=== PATIENT | male | born 1995 | race Caucasian/White ===

== ENCOUNTER 2016-12-29 13:10 | Emergency (ER) | payer SELFPAY ==
[2016-12-29] MEDS ORDERED: ONDANSETRON 4 MG TAB.RAPDIS PO ONE (13:20)
[2016-12-29] MEDS ORDERED: IBUPROFEN 800 MG TABLET PO ONE (13:20)
--- NOTE | 2016-12-29 13:20 | ER Document Report ---
ED Medical Screen (RME) - General Stated Complaint: VOMITING Mode of Arrival: Ambulatory Information source: Patient Notes: c/o OWENS pounding for 3 days, vision becomes blurry with OWENS, Didn't drive here do to OWENS. Reports fever-felt hot, vomiting frequently for first 2 days, now gagging. c/o cough, back muscle tensed up. Still feels awful. reports neck sore. temp 102. HR 117. TRAVEL OUTSIDE OF THE [place] IN LAST 30 DAYS: No - Related Data Allergies/Adverse Reactions: Penicillins Allergy (Verified 11/14/12 22:46) Past Medical History - Immunizations Immunizations up to date: Yes Hx Diphtheria, Pertussis, Tetanus Vaccination: Yes
--- NOTE | 2016-12-29 17:06 | ER Document Report ---
ED Fever <GO ROBIN - Last Filed: 12/29/16 19:15> - General Mode of Arrival: Ambulatory Information source: Patient TRAVEL OUTSIDE OF THE [place] IN LAST 30 DAYS: No - HPI Patient complains to provider of: Fever and Body Ache Onset: Other - 3 days ago Associated symptoms: Other - see above <MALLORY DOTY - Last Filed: 12/29/16 23:06> - General Chief Complaint: Fever Stated Complaint: VOMITING Notes: 21-year-old male with no prior medical problems presents to the ED complaining of a fever (took Tylenol today) and soreness to the top of the bilateral legs and back for the past 3 days. Patient states that he is drinking normally but has had a decrease in appetite. Patient is also complaining of a headache, vomiting, and dry heaving. Patient denies diarrhea. Patient also denies getting the flu shot this year. (MALLORY DOTY) - Related Data Allergies/Adverse Reactions: Penicillins Allergy (Verified 12/29/16 13:18) Past Medical History - General Information source: Patient - Social History Smoking Status: Current Every Day Smoker Chew tobacco use (# tins/day): No Frequency of alcohol use: Rare Family History: Other - Mother has prophylactic reaction to penicillin. Father may also have a penicillin allergy, the son's report she does, the mother is not aware of her spouse having an allergy. Patient has suicidal ideation: No Patient has homicidal ideation: No - Medical History Medical History: Negative Renal/ Medical History: Denies: Hx Peritoneal Dialysis Surgical Hx: Negative - Immunizations Immunizations up to date: Yes Hx Diphtheria, Pertussis, Tetanus Vaccination: Yes <MALLORY DOTY - Last Filed: 12/29/16 23:06> Review of Systems - Review of Systems Constitutional: See HPI, Fever EENT: No symptoms reported Cardiovascular: No symptoms reported Respiratory: No symptoms reported Gastrointestinal: See HPI, Vomiting, Poor appetite, Other - dry heaving. denies : Diarrhea, Poor fluid intake Genitourinary: No symptoms reported Male Genitourinary: No symptoms reported Musculoskeletal: No symptoms reported Skin: No symptoms reported Hematologic/Lymphatic: No symptoms reported Neurological/Psychological: See HPI, Headaches -: Yes All other systems reviewed and negative <MALLORY DOTY - Last Filed: 12/29/16 23:06> Physical Exam - General General appearance: Alert In distress: None - HEENT Head: Normocephalic, Atraumatic Eyes: Normal Extraocular movements intact: Yes Pupils: PERRL Neck: Normal, Other - no nuchal rigidity - Respiratory Respiratory status: No respiratory distress Breath sounds: Normal - Cardiovascular Rhythm: Regular Heart sounds: Normal auscultation - Abdominal Inspection: Normal Distension: No distension Bowel sounds: Normal Tenderness: Nontender - Back Back: Normal - Extremities General upper extremity: Normal inspection, Normal ROM General lower extremity: Normal inspection, Normal ROM - Neurological Neuro grossly intact: Yes Cognition: Normal Orientation: AAOx4 Mason Coma Scale Eye Opening: Spontaneous Mason Coma Scale Verbal: Oriented Mason Coma Scale Motor: Obeys Commands Mason Coma Scale Total: 15 Speech: Normal - Psychological Associated symptoms: Normal affect, Normal mood - Skin Skin Temperature: Warm Skin Moisture: Dry Skin Color: Normal <MALLORY DOTY - Last Filed: 12/29/16 23:06> - Vital signs Vitals: Temp Pulse Resp BP Pulse Ox 102 F H 117 H 16 117/66 96 12/29/16 13:18 12/29/16 13:18 12/29/16 13:18 12/29/16 13:18 12/29/16 13:18 (GO ROBIN) Course - Laboratory Result Diagrams: 12/29/16 17:20 12/29/16 17:20 <GO ROBIN - Last Filed: 12/29/16 19:15> - Laboratory Result Diagrams: 12/29/16 17:20 12/29/16 17:20 <MALLORY DOTY - Last Filed: 12/29/16 23:06> - Re-evaluation Re-evalutation: 12/29/16 19:14 I personally performed the services described in the documentation, reviewed and edited the documentation which was dictated to my scribe in my presence, and it accurately records my words and actions. presents emergency Department with fever chills bodyaches. He is positive for influenza. Symptoms have been going on for 3 days patient cannot afford Tamiflu would rather just do supportive care with Tylenol Motrin. His primary care physician in 2-3 days given a work excuse and discussed reasons Fredia return sooner (GO ROBIN) - Vital Signs Vital signs: Temp Pulse Resp BP Pulse Ox 97.5 F 71 16 121/70 98 02/07/17 18:53 12/29/16 18:53 12/29/16 18:53 12/29/16 18:53 12/29/16 18:53 (GO ROBIN) (MALLORY DTOY) - Laboratory Laboratory results interpreted by me: 12/29/16 12/29/16 17:20 17:20 Plt Count 136 L Lymphocytes % 10.8 L Monocytes % 19.0 H Sodium 135.9 L Creatinine 1.38 H Glucose 139 H (GO ROBIN) Discharge <GO ROBIN - Last Filed: 12/29/16 19:15> <MALLORY DOTY - Last Filed: 12/29/16 23:06> - Discharge Clinical Impression: Influenza A Condition: Stable Disposition: HOME, SELF-CARE Instructions: Fever ([facility]), Influenza ([facility]) [id number], Acetaminophen Forms: Return to Work Referrals: [facility] [Provider Group] - Follow up as needed (In 2-3 days return for increasing worsening or new symptoms) Scribe Documentation - Scribe Written by Lilye:: Robe Nair, 12/29/2016 1939 acting as scribe for :: Alberto <MALLORY DOTY - Last Filed: 12/29/16 23:06>
[2016-12-29 17:41] LABS: ABSOLUTE LYMPHOCYTES (AUTO) 0.6 10^3/uL (0.5-4.7); ABSOLUTE MONOCYTES (AUTO) 1.1 10^3/uL (0.1-1.4); ABSOLUTE NEUT (AUTO) 3.9 10^3/uL (1.7-8.2); BASOPHILS % (AUTO) 0.8 % (0-2); EOSINOPHILS % (AUTO) 0.1 % (0-6); HEMATOCRIT 44.5 % (37.9-51.0); HGB HCT DIFFERENCE 0.5; LYMPHOCYTES % (AUTO) 10.8 % (13-45); MEAN CORPUSCULAR HEMOGLOBIN 29.1 pg (27.0-33.4); MEAN CORPUSCULAR HGB CONC 33.7 g/dL (32.0-36.0); MEAN CORPUSCULAR VOLUME 86 fl (80-97); RED BLOOD COUNT 5.16 10^6/uL (4.35-5.55); SEGMENTED NEUTROPHILS % (AUTO) 69.3 % (42-78); WHITE BLOOD COUNT 5.6 10^3/uL (4.0-10.5)
[2016-12-29 18:01] LABS: ALANINE AMINOTRANSFERASE 21 U/L (21-72); ALBUMIN 4.6 g/dL (3.5-5.0); ALKALINE PHOSPHATASE 74 U/L (38-126); ANION GAP 12 (5-19); ASPARTATE AMINO TRANSFERASE 27 U/L (17-59); BILIRUBIN,TOTAL 0.7 mg/dL (0.2-1.3); BLOOD UREA NITROGEN 16 mg/dL (7-20); CALCIUM 9.5 mg/dL (8.4-10.2); CARBON DIOXIDE 26 mmol/L (22-30); CHLORIDE 98 mmol/L (98-107); CREATININE RESULT 1.38 mg/dL (0.52-1.25); GLUCOSE 139 mg/dL (75-110); POTASSIUM 4.1 mmol/L (3.6-5.0); SODIUM 135.9 mmol/L (137-145); TOTAL PROTEIN 7.8 g/dL (6.3-8.2)
[2016-12-29 18:37] LABS: APPEARANCE,URINE CLEAR; BILIRUBIN,URINE NEGATIVE (NEGATIVE); GLUCOSE, URINE NEGATIVE (NEGATIVE); KETONES,URINE NEGATIVE (NEGATIVE); LEUKOCYTE ESTERASE,URINE NEGATIVE (NEGATIVE); NITRITE,URINE NEGATIVE (NEGATIVE); PROTEIN,URINE NEGATIVE (NEGATIVE); URINE SPECIFIC GRAVITY 1.006; UROBILINOGEN,URINE NEGATIVE mg/dL (<2.0)
[2016-12-29 18:53] VITALS: BP 121/70
== END 2016-12-29 19:22 | disposition home or self-care (01) ==
LOC: ER 13:10
DX: J09.X2 Influenza due to identified novel influenza A virus with other respiratory manifestations (principal); R50.9 Fever, unspecified; R11.10 Vomiting, unspecified; M79.1 Myalgia; R51 Headache; F17.200 Nicotine dependence, unspecified, uncomplicated; Z88.0 Allergy status to penicillin
CPT/HCPCS: 99283; 36415; 85025; 80053; 81001; 87804; 71020; S0119

== ENCOUNTER 2017-01-06 12:58 | Emergency (ER) | payer SELFPAY ==
[2017-01-06 13:13] VITALS: BP 126/64
--- NOTE | 2017-01-06 13:26 | ER Document Report ---
ED Medical Screen (RME) - General Stated Complaint: COUGH,CONGESTION Notes: 21 yo male c/o cough, chest tightness, shortness of breath x 2 days. flu like symptoms last week. + smoker. TRAVEL OUTSIDE OF THE [place] IN LAST 30 DAYS: No - Related Data Allergies/Adverse Reactions: Penicillins Allergy (Verified 01/06/17 13:23) Past Medical History Renal/ Medical History: Denies: Hx Peritoneal Dialysis - Immunizations Immunizations up to date: Yes Hx Diphtheria, Pertussis, Tetanus Vaccination: Yes Physical Exam - Vital signs Vitals: Temp Pulse Resp BP Pulse Ox 98.3 F 97 18 126/64 H 95 01/06/17 13:12 01/06/17 13:12 01/06/17 13:12 01/06/17 13:12 01/06/17 13:12 Course - Vital Signs Vital signs: Temp Pulse Resp BP Pulse Ox 98.3 F 97 18 126/64 H 95 01/06/17 13:12 01/06/17 13:12 01/06/17 13:12 01/06/17 13:12 01/06/17 13:12
--- NOTE | 2017-01-06 14:25 | ER Document Report ---
HPI - HPI Patient complains to provider of: cough Onset: Last week Onset/Duration: Persistent Pain Level: 3 Context: 21-year-old woke her male that states he had a upper respiratory infection last week has persistent cough and some wheeze. Fever or chills. No shortness of breath. Associated Symptoms: None Exacerbated by: Denies Relieved by: Denies Similar symptoms previously: No Recently seen / treated by doctor: No - ROS ROS below otherwise negative: Yes Systems Reviewed and Negative: Yes All other systems reviewed and negative - DERM Skin Color: Normal Past Medical History - General Information source: Patient - Social History Smoking Status: Current Every Day Smoker Chew tobacco use (# tins/day): Yes Frequency of alcohol use: None Drug Abuse: None Lives with: Family Family History: Other - Mother has prophylactic reaction to penicillin. Father may also have a penicillin allergy, the son's report she does, the mother is not aware of her spouse having an allergy. - Medical History Medical History: Negative Renal/ Medical History: Denies: Hx Peritoneal Dialysis Surgical Hx: Negative - Immunizations Immunizations up to date: Yes Hx Diphtheria, Pertussis, Tetanus Vaccination: Yes Vertical Provider Document - CONSTITUTIONAL Agree With Documented VS: Yes Exam Limitations: No Limitations - INFECTION CONTROL TRAVEL OUTSIDE OF THE [place] IN LAST 30 DAYS: No - HEENT HEENT: Normocephalic, PERRLA, Pharyngeal Erythema. negative: Conjuctival Injection, Tympanic Membrane Red - Minimal, Tympanic Membrane Bulging - NECK Neck: Supple. negative: Lymphadenopathy-Left, Lymphadenopathy-Right - RESPIRATORY Respiratory: Breath Sounds Normal, No Respiratory Distress, Wheezing - Course minimal bilateral O2 Sat by Pulse Oximetry: 95 - CARDIOVASCULAR Cardiovascular: Regular Rate, Regular Rhythm - GI/ABDOMEN Gastrointestinal: Abdomen Soft, Abdomen Non-Tender, No Organomegaly - MUSCULOSKELETAL/EXTREMETIES Musculoskeletal/Extremeties: MAEW, FROM - NEURO Level of Consciousness: Awake, Alert - DERM Integumentary: Warm, Dry, No Rash Course - Re-evaluation Re-evalutation: 01/06/17 14:28 Chest x-ray is negative. 01/06/17 14:40 looser cough after the nebulizer. 01/06/17 21:38 - Vital Signs Vital signs: Temp Pulse Resp BP Pulse Ox 98.3 F 97 18 126/64 H 95 01/06/17 13:12 01/06/17 13:12 02/15/17 13:12 01/06/17 13:12 01/06/17 13:12 Discharge - Discharge Clinical Impression: Asthmatic bronchitis Qualifiers: Asthma severity: unspecified severity Asthma complication type: uncomplicated Qualified Code(s): J45.909 - Unspecified asthma, uncomplicated Condition: Good Disposition: HOME, SELF-CARE Instructions: Inhaled Bronchodilators ([facility]), Bronchitis With Bronchospasm ( Wheezing) ([facility]), Steroid Medication, Stop Smoking ([facility]), Family Physicians / Practices Additional Instructions: stop smoking drink plenty of fluids use the inhaler to help get the mucous out return to er if worse Prescriptions: Albuterol Sulfate [Proair HFA Inhalation Aerosol 8.5 gm MDI] 2 puff IH Q3HP PRN #1 [id number].[email or web address] PRN Reason: Prednisone [Deltasone 10 mg Tablet] 10 mg PO ASDIR PRN #21 tablet PRN Reason: Forms: Return to Work
[2017-01-06] MEDS ORDERED: PREDNISONE 20 MG TABLET PO ONE (14:28)
[2017-01-06] MEDS ORDERED: IPRATROPIUM/ALBUTEROL 0.5-2.5 MG/3 ML AMPUL NEB ONE (14:28)
== END 2017-01-06 15:03 | disposition home or self-care (01) ==
LOC: ER 12:58
DX: J45.909 Unspecified asthma, uncomplicated (principal); F17.210 Nicotine dependence, cigarettes, uncomplicated
CPT/HCPCS: 94640; 99283; 71020; J7512; J7620